=== PATIENT | male | born 1980 ===

== ENCOUNTER 2017-09-17 21:42 | Emergency (ER) | payer SELFPAY ==
[2017-09-17 22:27] VITALS: BP 136/84; PULSE 80; RESP 16; TEMP 99.2; O2SAT 99
--- NOTE | 2017-09-17 22:47 | C.PDOC ---
History Of Present Illness 37 year old male with a history of a herniated disc at L5 presents to the ER complaining of lower back pain and requesting a refill of his pain medication. Patient states he is visiting from [place] and is almost out of his diclofenac and lyrica. Denies weakness, numbness, incontinence, dysuria, hematuria, or recent trauma. Time Seen by Provider: 09/17/17 22:34 Chief Complaint (Nursing): Back Pain History Per: Patient History/Exam Limitations: no limitations Onset/Duration Of Symptoms: Days Quality Of Discomfort: Unable To Describe Previous Symptoms: Back Pain, Chronic Pain Associated Symptoms: None Exacerbating Factor(s): Nothing Recent travel outside of the [place]: No Past Medical History Reviewed: Historical Data, Nursing Documentation, Vital Signs Vital Signs: Last Vital Signs Temp 99.2 F 09/17/17 22:21 Pulse 80 09/17/17 22:21 Resp 16 09/17/17 22:21 BP 136/84 09/17/17 22:21 Pulse Ox 99 09/17/17 23:07 - Medical History PMH: Back Problems Surgical History: No Surg Hx Family History: States: Unknown Family Hx - Social History Hx Alcohol Use: No Hx Substance Use: No - Immunization History Hx Tetanus Toxoid Vaccination: No Hx Influenza Vaccination: No Hx Pneumococcal Vaccination: No Review Of Systems Genitourinary: Negative for: Dysuria, Incontinence, Hematuria Musculoskeletal: Positive for: Back Pain Neurological: Negative for: Weakness, Numbness Physical Exam - Physical Exam Appears: Non-toxic, No Acute Distress Skin: Normal Color, Warm, Dry Head: Atraumatic, Normacephalic Eye(s): bilateral: Normal Inspection Neck: Normal ROM Chest: Symmetrical Back: No Vertebral Tenderness, Paraspinal Tenderness (Mild lumbar), Other (No bulging, swelling, or ecchymosis.) Extremity: Normal ROM (x4), No Tenderness, No Deformity, No Swelling Neurological/Psych: Oriented x3, Normal Speech Gait: Steady ED Course And Treatment O2 Sat by Pulse Oximetry: 99 (Room air) Pulse Ox Interpretation: Normal Medical Decision Making Medical Decision Making: Patient given Rx for medications and advised to follow up with PMD. Disposition Counseled Patient/Family Regarding: Diagnosis, Need For Followup, Rx Given - Disposition Referrals: [facility] [Outside] [facility] [Outside] [facility] [Outside] Disposition: HOME/ ROUTINE Disposition Time: 22:47 Condition: STABLE Additional Instructions: Justine medicamentos segn lo prescrito Prescriptions: Diclofenac Sodium [Voltaren] 75 mg PO DAILY #30 ect Pregabalin [Lyrica] 75 mg PO Q12 #30 cap Instructions: Acute Low Back Pain (DC), Medicine Refill (ED) Forms: [employer] ([place]) Print Language: ZAMBIAN - POA Present On Arrival: None - Clinical Impression Clinical Impression: Low back pain, Medicine refill - PA / CAR HIKER / Resident Statement MD/DO has reviewed & agrees with the documentation as recorded. - Scribe Statement The provider has reviewed the documentation as recorded by the Scribe Nikko Saldana All medical record entries made by the Payton were at my direction and personally dictated by me. I have reviewed the chart and agree that the record accurately reflects my personal performance of the history, physical exam, medical decision making, and the department course for this patient. I have also personally directed, reviewed, and agree with the discharge instructions and disposition.
== END 2017-09-17 23:20 | disposition home or self-care (01) ==
LOC: C.ER 21:42
DX: M54.5 Low back pain (principal); Z76.0 Encounter for issue of repeat prescription